=== PATIENT | male | born 1985 | race Caucasian/White ===

== ENCOUNTER 2024-12-20 06:28 | Day surgery (SDC) | payer OTHER ==
[2024-12-15 17:23] VITALS: BMI 26.3
[~2024-12-20 06:28] MED LIST: LACTATED RINGERS SOLUTION 1,000 ML IV SCH; PROMETHAZINE HCL 25 MG/1 ML VIAL IVPB PRN
[2024-12-20] MEDS ORDERED: LIDOCAINE HCL 1%, 10 MG/ML (20ML VIAL) ONE (14:05)
[2024-12-20] MEDS ORDERED: BUPIVACAINE HCL/PF 0.5% (5MG/ML) 10 ML VIAL ONE (14:05)
[2024-12-20] MEDS ORDERED: PROPOFOL 20 ML ONE (14:18)
[2024-12-20] MEDS ORDERED: MIDAZOLAM HCL 2 MG/2 ML SINGLE DOSE VIAL ONE (14:18)
[2024-12-20] MEDS: ceFAZolin SODIUM 1 GM VIAL IVPB ONE (14:26)
[2024-12-20] MEDS: BUPIVACAINE HCL/PF 0.5% (5MG/ML) 10 ML VIAL IJ ONE ×2 (14:32)
[2024-12-20] MEDS: LIDOCAINE HCL 1%, 10 MG/ML (20ML VIAL) NR ONE ×2 (14:32)
[2024-12-20] MEDS ORDERED: BACITRACIN ZINC 15 GM TUBE TOPICAL OINTMENT ONE (15:13)
[2024-12-20] MEDS: LACTATED RINGERS SOLUTION 1,000 ML IV SCH (16:00)
[2024-12-20 17:01] VITALS: RESP 18
[2024-12-20] MEDS ORDERED: oxyCODONE HCL 5 MG TABLET ONE (18:01)
[2024-12-20] MEDS ORDERED: ONDANSETRON 4 MG/2 ML VIAL ONE (18:01)
[2024-12-20] MEDS: oxyCODONE HCL 5 MG TABLET PO PRN (18:13)
[2024-12-20] MEDS: ONDANSETRON 4 MG/2 ML VIAL IVPUSH PRN (18:14)
[2024-12-20 18:26] VITALS: BP 115/70; PULSE 60; TEMP 98.2
== END 2024-12-20 18:49 | disposition home or self-care (01) ==
LOC: JASU-SURG 06:28
PROVIDERS: ATTEND Urology
PROC: 0VBH0ZZ Excision of Bilateral Spermatic Cords, Open Approach (ICD-10-PCS; principal; 2024-12-20 12:30)
DX: D29.4 Benign neoplasm of scrotum (principal); L72.8 Other follicular cysts of the skin and subcutaneous tissue
CPT/HCPCS: 86850; 86900; 86901; 88305-TC; 88341-TC; 88342-TC; 94760